=== PATIENT | female | born 1960 | race Caucasian/White ===

== ENCOUNTER 2018-03-18 10:49 | Emergency (ER) | payer OTHER ==
[~2018-03-18] VITALS: Ht 162.6 cm; Wt 98.9 kg
[2018-03-18 10:57] VITALS: BP 176/91
[2018-03-18] MEDS: IBUPROFEN 400 MG TAB PO ONE (11:43)
[2018-03-18 12:08] VITALS: BP 175/90
== END 2018-03-18 12:08 | disposition home or self-care (01) ==
LOC: MED 10:49
DX: M76.62 Achilles tendinitis, left leg (principal); M77.32 Calcaneal spur, left foot; I10 Essential (primary) hypertension
CPT/HCPCS: 73610; 99284; Q0092